=== PATIENT | male | born 1975 | race Caucasian/White ===

== ENCOUNTER 2017-02-18 16:13 | Emergency (ER) | payer SELFPAY ==
[~2017-02-18] VITALS: Ht 182.9 cm; Wt 89.0 kg
[2017-02-18 16:16] VITALS: Ht 182.9 cm; Wt 89.0 kg
[2017-02-18] MEDS ORDERED: IBUPROFEN 800 MG TAB PO ONE (16:30)
[2017-02-18] MEDS ORDERED: IBUP-1542 PO (17:07)
--- NOTE | 2017-02-18 17:09 | ERD ---
ER Documentation Chief Complaint Date/Time DATE: 02/18/17 TIME: 17:08 Chief Complaint CWP SINCE YESTERDAY HPI Patient is a 41-year-old male with no medical problems who presents with chest pain. The patient says that he feels left-sided pressure-like chest pain which started yesterday. It has been constant. He has had no treatment as of yet. He said that he never had this before. He has had no recent travel. He feels like it may be related to the fact that he has a new girl that he met 3 days ago and says that he "loves her". He is feeling palpitations in that area. He feels the symptoms when he thinks about her. He has had no shortness of breath and no trouble breathing. He does not currently have a primary doctor. Upon review of old medical records the patient one previous visit in 2013. ROS All systems reviewed and are negative except as per history of present illness. Medications Home Meds Active Scripts Ibuprofen* (Motrin*) 600 Mg Tab, 600 MG PO Q6H Y for PAIN AND OR ELEVATED TEMP, #30 TAB Prov:SHIRA JANG MD 02/18/17 Allergies Allergies: Coded Allergies: No Known Allergy (Unverified , 01/26/14) PMhx/Soc Medical and Surgical Hx: pt denies Medical Hx, pt denies Surgical Hx Hx Alcohol Use: No Hx Substance Use: No Hx Tobacco Use: No Smoking Status: Never smoker FmHx Family History: No coronary disease Physical Exam Vitals Vital Signs Date Time Temp Pulse Resp B/P Pulse Ox O2 Delivery O2 Flow Rate FiO2 02/18/17 16:16 97.8 83 18 135/83 99 Physical Exam Const: No acute distress Head: Atraumatic Eyes: Normal Conjunctiva ENT: Normal External Ears, Nose and Mouth. Neck: Full range of motion..~ No meningismus. Resp: Clear to auscultation bilaterally Cardio: Regular rate and rhythm, no murmurs Abd: Soft, non tender, non distended. Normal bowel sounds Skin: No petechiae or rashes Back: No midline or flank tenderness Ext: No cyanosis, or edema Neur: Awake and alert Psych: Normal Mood and Affect Results 24 hrs Current Medications Medications (Trade) Dose Ordered Sig/Rocio Route PRN Reason Start Time Stop Time Status Last Admin Dose Admin Ibuprofen (Motrin) 800 mg ONCE ONCE PO 02/18/17 16:30 02/18/17 16:31 DC 02/18/17 16:36 Procedures/MDM Chest X-ray 1V Interpreted by me: Soft Tissue: No acute abnormalities Bones: No acute abnormalities Mediastinum/Cardiac Silhouette/Lungs: No acute abnormalities EKG read by me: Rate/Rhythm: Sinus bradycardia at a rate of 55 Intervals: Normal Impression: No evidence of ischemia or arrhythmia Patient is a 41-year-old male with no medical problems who presents with left- sided chest pain. He has no risk factors for cardiac disease. EKG and chest x- ray were negative. The patient was given ibuprofen. He is otherwise well- appearing. At this point I doubt acute coronary syndrome, pneumonia, pneumothorax, pulmonary embolism, or aortic dissection. I believe outpatient management is appropriate for the patient will need to follow-up closely with the local clinics within 24-48 hours for reevaluation. He can return for any worsening symptoms. Departure Diagnosis: Primary Impression: Chest pain Chest pain type: unspecified Qualified Code: R07.9 - Chest pain, unspecified type Condition: Fair Patient Instructions: Chest Pain, Uncertain Cause Referrals: [facility] YOU HAVE RECEIVED A MEDICAL SCREENING EXAM AND THE RESULTS INDICATE THAT YOU DO NOT HAVE A CONDITION THAT REQUIRES URGENT TREATMENT IN THE EMERGENCY DEPARTMENT. FURTHER EVALUATION AND TREATMENT OF YOUR CONDITION CAN WAIT UNTIL YOU ARE SEEN IN YOUR DOCTORS OFFICE WITHIN THE NEXT 1-2 DAYS. IT IS YOUR RESPONSIBILITY TO MAKE AN APPOINTMENT FOR FOLOW-UP CARE. IF YOU HAVE A PRIMARY DOCTOR --you should call your primary doctor and schedule an appointment IF YOU DO NOT HAVE A PRIMARY DOCTOR YOU CAN CALL OUR PHYSICIAN REFERRAL HOTLINE AT IF YOU CAN NOT AFFORD TO SEE A PHYSICIAN YOU CAN CHOSE FROM THE FOLLOWING [facility] [address] [facility] [address] [facility] [address] [facility] [address] [facility]. [facility] [address] [facility]. [facility]. [address] Additional Instructions: Call your primary care doctor TOMORROW for an appointment during the next 1-2 days.See the doctor sooner or return here if your condition worsens before your appointment time. SHIRA JANG MD Feb 18, 2017 17:09
[2017-02-18 17:14] VITALS: BP 116/85; PULSE 61; RESP 18; TEMP 97.8
--- NOTE | 2017-02-18 17:19 | RADRPT ---
PROCEDURE: XR Chest. CLINICAL INDICATION: chest pain TECHNIQUE: Single frontal view of the chest was obtained COMPARISON: None FINDINGS: The heart and mediastinum are within normal limits. The lungs are clear. There is no pleural effusion or pneumothorax. RPTAT: AA IMPRESSION: No acute disease. .Mitch Terry MD, Date Time Electronically viewed and signed by .Mitch Terry MD, on 02/18/2017 17:18 .S/
== END 2017-02-18 17:16 | disposition home or self-care (01) ==
LOC: E/R 16:13
DX: R07.9 Chest pain, unspecified (principal); R40.2142 Coma scale, eyes open, spontaneous, at arrival to emergency department; R40.2252 Coma scale, best verbal response, oriented, at arrival to emergency department; R40.2362 Coma scale, best motor response, obeys commands, at arrival to emergency department
CPT/HCPCS: 71010; 93005